=== PATIENT | female | born 1970 | race Asian ===

== ENCOUNTER → 2016-09-11 | Outpatient (CLI) | payer BC | END | disposition home or self-care (01) | LOC: LAB 09:41 | PROVIDERS: ATTEND Internal Medicine | DX: E78.00 Pure hypercholesterolemia, unspecified (principal) | CPT/HCPCS: 80061 ==

== ENCOUNTER → 2016-11-20 | Outpatient (CLI) | payer BC ==
[2016-11-20 15:06] LABS: THYROID STIMULATING HORMONE 1.4 MIU/L (0.465-4.680); TRIIODOTHYRONINE 0.97 ng/ml (0.97-1.69)
== END | disposition home or self-care (01) ==
LOC: LAB 13:35
PROVIDERS: ATTEND Internal Medicine
DX: N92.6 Irregular menstruation, unspecified (principal)
CPT/HCPCS: 83001; 84436; 84443; 84480; 84703

== ENCOUNTER → 2016-12-19 | Outpatient (CLI) | payer BC ==
[2016-12-19 12:35] LABS: ADD SCAN DIFF NO
[2016-12-19 12:56] LABS: INR 0.95; PROTIME 12.7 Sec (12.2-14.2)
[2016-12-19 13:22] LABS: BASOPHILS % 0.5 % (0.0-2.0); EOSINOPHILS # 0.1 10^3/ul (0.0-0.5); EOSINOPHILS % 2.1 % (0.0-7.0); HEMATOCRIT 33.6 % (37.0-47.0); HEMOGLOBIN 11.1 g/dl (12.0-16.0); LYMPHOCYTES # 1.7 10^3/ul (0.8-2.9); LYMPHOCYTES % 30.2 % (15.0-51.0); MEAN CORPUSCULAR HEMOGLOBIN 29.2 pg (29.0-33.0); MEAN CORPUSCULAR VOLUME 88.4 fl (82.0-101.0); MEAN PLATELET VOLUME 10.2 fl (7.4-10.4); MONOCYTE # 0.3 10^3/ul (0.3-0.9); MONOCYTES % 5.6 % (0.0-11.0); NEUTROPHIL # 3.5 10^3/ul (1.6-7.5); NEUTROPHILS % 61.4 % (39.0-77.0); PLATELET COUNT 316 10^3/UL (140-415); RED CELL DISTRIBUTION WIDTH 15.9 % (11.5-14.5); WHITE BLOOD COUNT 5.7 10^3/ul (4.8-10.8)
[2016-12-21 14:15] LABS: LUTEINIZING HORMONE 7.3 mIU/mL
== END | disposition home or self-care (01) ==
LOC: LAB 12:01
DX: N92.1 Excessive and frequent menstruation with irregular cycle (principal)
CPT/HCPCS: 82670; 83001; 83002; 84146; 84702; 85025; 85610; 85651; 85730

== ENCOUNTER 2016-12-26 01:08 | Emergency (ER) | payer BC ==
[~2016-12-26] VITALS: Ht 162.6 cm; Wt 65.0 kg
[2016-12-26 01:10] VITALS: Ht 162.6 cm; Wt 65.0 kg
--- NOTE | 2016-12-26 02:59 | RADRPT ---
PROCEDURE: ULTRASOUND PELVIS CLINICAL INDICATION: 46-year-old female with vaginal bleeding. TECHNIQUE: Multiple sonographic images of the pelvis were obtained utilizing a transabdominal and endovaginal technique. The images were reviewed on a PACS workstation. COMPARISON: None. FINDINGS: The uterus is visualized and measures 9.7 x 5.1 x 5.6 cm. The endometrial echo complex is within nor mal limits and measures 12.2 mm. There is no evidence for free fluid. The right ovary has a normal e chotexture and measures 3.6 x 2.0 x 3.1 cm. There is flow identified within the right ovary. There i s a dominant right ovarian cyst measuring 3.0 x 0.6 x 2.0 cm. There is a smaller adjacent follicular right ovarian cyst. The left ovary was not visualized. No adnexal masses are noted. IMPRESSION: 1. Right ovarian cyst. 2. The left ovary was not visualized. .Faizan Sanches MD, Date Time Electronically viewed and signed by .Faizan Sanches MD, on 12/26/2016 02:59 .Caroline/
[2016-12-26 03:17] LABS: ADD UMIC YES; UR BILIRUBIN (Dip) NEGATIVE (NEGATIVE); UR BLOOD (Dip) 3+ (NEGATIVE); UR CLARITY CLOUDY (CLEAR); UR COLOR LT. YELLOW (YELLOW); UR GLUCOSE (Dip) NEGATIVE (NEGATIVE); UR KETONES (Dip) NEGATIVE (NEGATIVE); UR LEUKOCYTE ESTERASE (Dip) NEGATIVE (NEGATIVE); UR NITRITE (Dip) NEGATIVE (NEGATIVE); UR TOTAL PROTEIN (Dip) TRACE (NEGATIVE); UR UROBILINOGEN (Dip) 0.2 E.U./dL (0.1-1.0)
[2016-12-26 03:19] LABS: ADD SCAN DIFF NO
[2016-12-26 03:21] LABS: BASOPHILS % 0.6 % (0.0-2.0); EOSINOPHILS # 0.1 10^3/ul (0.0-0.5); EOSINOPHILS % 1.7 % (0.0-7.0); HEMOGLOBIN 10.5 g/dl (12.0-16.0); LYMPHOCYTES # 2.1 10^3/ul (0.8-2.9); MEAN CORPUSCULAR HEMOGLOBIN 29.1 pg (29.0-33.0); MEAN CORPUSCULAR HGB CONC 32.8 g/dl (32.0-37.0); MEAN CORPUSCULAR VOLUME 88.6 fl (82.0-101.0); MEAN PLATELET VOLUME 9.4 fl (7.4-10.4); MONOCYTE # 0.4 10^3/ul (0.3-0.9); MONOCYTES % 6.1 % (0.0-11.0); NEUTROPHIL # 4.5 10^3/ul (1.6-7.5); NEUTROPHILS % 62.5 % (39.0-77.0); PLATELET COUNT 351 10^3/UL (140-415); RED BLOOD COUNT 3.61 10^6/ul (4.20-5.40); RED CELL DISTRIBUTION WIDTH 15.9 % (11.5-14.5); WHITE BLOOD COUNT 7.2 10^3/ul (4.8-10.8)
[2016-12-26] MEDS ORDERED: SOD CHLORIDE 0.9% 1,000 ML IV ONE (03:30)
[2016-12-26 03:48] LABS: POTASSIUM 3.9 mmol/L (3.5-5.1)
[2016-12-26] MEDS ORDERED: MEDR2.5T21 PO (03:49)
[2016-12-26] MEDS ORDERED: METO-448 PO (03:49)
--- NOTE | 2016-12-26 03:49 | ERD ---
ER Documentation Chief Complaint Date/Time DATE: 12/26/16 TIME: 03:47 Chief Complaint pt has had irregular vb since november, 1 pad per hour HPI 46-year-old female presents in emergency department for complaint of irregular vaginal bleeding for the last 4 months, worse in the last month. Patient has been soaking 7 pads per day for the last week. Patient is complaining of pelvic pain and cramping pain for/10 scale, accompanying the vaginal bleeding. Patient has seen OB doctor, was given prescription for medroxyprogesterone she has been taking the medications but with only mild relief. Patient denies any flank pain. Patient denies any fever or chills. Patient denies being . Patient denies any chest pain, dizziness. Patient denies any numbness or tingling. Patient has any shortness of breath. ROS All systems reviewed and are negative except as per history of present illness. Medications Home Meds Active Scripts Docusate Sodium* (Colace*) 100 Mg Capsule, 100 MG PO TID, #30 CAP Prov:KALE VALADEZ EMERGENCY MEDICINE 12/26/16 Ferrous Sulfate* (Ferrous Sulfate*) 325 Mg Tabec, 325 MG PO BID, #60 TAB Prov:KALE VALADEZ EMERGENCY MEDICINE 12/26/16 Ibuprofen* (Motrin*) 600 Mg Tab, 600 MG PO Q6H Y for PAIN AND OR ELEVATED TEMP, #30 TAB Prov:KALE VALADEZ EMERGENCY MEDICINE 12/26/16 Reported Medications Medroxyprogesterone Acetate* (Medroxyprogesterone Acetate*) Unknown Strength Tablet, PO DAILY, TAB 12/26/16 Metoprolol Tartrate* (Lopressor*) Unknown Strength Tab, PO BID, #180 TAB 12/26/16 Allergies Allergies: Coded Allergies: No Known Allergy (Verified Allergy, Unknown, 12/05/06) PMhx/Soc History of Surgery: Yes (choley.) Hx Cardiac Disorders: Yes (htn) Hx Miscellaneous Medical Probl: No Hx Alcohol Use: No Hx Substance Use: No Hx Tobacco Use: No Smoking Status: Never smoker FmHx Family History: No coronary disease, No diabetes, No other Physical Exam Vitals Vital Signs Date Time Temp Pulse Resp B/P Pulse Ox O2 Delivery O2 Flow Rate FiO2 12/26/16 05:15 98.0 76 18 167/88 100 Room Air 12/26/16 01:10 98.3 106 16 160/99 100 Physical Exam GENERAL: The patient is well developed and appropriate for usual state of health, in no apparent distress. CHEST: Clear to auscultation bilaterally. There are no rales, wheezes or rhonchi. HEART: Regular rate and rhythm. No murmurs, clicks, rubs or gallops. No S3 or S4. ABDOMEN: Soft, nontender and nondistended. Good bowel sounds. No rebound or guarding. No gross peritonitis. No gross organomegaly or masses. No Gan sign or McBurney point tenderness. BACK: No midline or flank tenderness. EXTREMITIES: Equal pulses bilaterally. There is no peripheral clubbing, cyanosis or edema. No focal swelling or erythema. Full range of motion. Grossly neurovascularly intact. NEURO: Alert and oriented. Cranial nerves 2-12 intact. Motor strength in all 4 extremities with 5/5 strength. Sensation grossly intact. Normal speech and gait. SKIN: There is no apparent rash or petechia. The skin is warm and dry. HEMATOLOGIC AND LYMPHATIC: There is no evidence of excessive bruising or lymphedema. No gross cervical, axillary, or inguinal lymphadenopathy. Result Diagram: 12/26/16 0308 12/26/16 0308 Results 24 hrs Laboratory Tests Test 12/26/16 03:00 12/26/16 03:08 Urine Color LT. YELLOW Urine Clarity CLOUDY Urine pH 6.0 Urine Specific [place] 1.025 Urine Ketones NEGATIVE Urine Nitrite NEGATIVE Urine Bilirubin NEGATIVE Urine Urobilinogen 0.2 E.U./dL Urine Leukocyte Esterase NEGATIVE Urine Microscopic RBC >50/HPF Urine Microscopic WBC 0-2/HPF Urine Squamous Epithelial Cells FEW Urine Bacteria FEW Urine Mucus MODERATE Urine Hemoglobin 3+ Urine Glucose NEGATIVE% Urine Total Protein TRACE White Blood Count 7.210^3/ul Red Blood Count 3.6110^6/ul Hemoglobin 10.5g/dl Hematocrit 32.0% Mean Corpuscular Volume 88.6fl Mean Corpuscular Hemoglobin 29.1pg Mean Corpuscular Hemoglobin Concent 32.8g/dl Red Cell Distribution Width 15.9% Platelet Count 79494^3/UL Mean Platelet Volume 9.4fl Neutrophils % 62.5% Lymphocytes % 29.0% Monocytes % 6.1% Eosinophils % 1.7% Basophils % 0.6% Nucleated Red Blood Cells % 0.0/100WBC Neutrophils # 4.510^3/ul Lymphocytes # 2.110^3/ul Monocytes # 0.410^3/ul Eosinophils # 0.110^3/ul Basophils # 0.010^3/ul Nucleated Red Blood Cells # 0.010^3/ul Sodium Level 142mmol/L Potassium Level 3.9mmol/L Chloride Level 108mmol/L Carbon Dioxide Level 26mmol/L Anion Gap 12 Blood Urea Nitrogen 11mg/dl Creatinine 1.00mg/dl Glucose Level 121mg/dl Calcium Level 9.0mg/dl Beta HCG, Quantitative < 2.4mIU/ml Current Medications Medications (Trade) Dose Ordered Sig/Dylan Route PRN Reason Start Time Stop Time Status Last Admin Dose Admin Sodium Chloride (NS) 1,000 ml @ 1,000 mls/hr Q1H ONCE IV 12/26/16 03:30 12/26/16 04:29 DC 12/26/16 03:33 Ketorolac Tromethamine (Toradol) 30 mg ONCE STAT IV 12/26/16 04:59 12/26/16 05:02 DC 12/26/16 05:05 Normal saline IV bolus was given here in emergency department for rehydration, patient tolerated IV fluids. Toradol IV was given here in emergency department to help with cramping. PROCEDURE: ULTRASOUND PELVIS CLINICAL INDICATION: 46-year-old female with vaginal bleeding. TECHNIQUE: Multiple sonographic images of the pelvis were obtained utilizing a transabdominal and endovaginal technique. The images were reviewed on a PACS workstation. COMPARISON: None. FINDINGS: The uterus is visualized and measures 9.7 x 5.1 x 5.6 cm. The endometrial echo complex is within normal limits and measures 12.2 mm. There is no evidence for free fluid. The right ovary has a normal echotexture and measures 3.6 x 2.0 x 3.1 cm. There is flow identified within the right ovary. There is a dominant right ovarian cyst measuring 3.0 x 0.6 x 2.0 cm. There is a smaller adjacent follicular right ovarian cyst. The left ovary was not visualized. No adnexal masses are noted. IMPRESSION: 1. Right ovarian cyst. 2. The left ovary was not visualized. .Faizan Sanches MD, MD Date Time Electronically viewed and signed by .Faizan Sanches MD, on 12/26/2016 02:59 .M/ CC: NKECHI BAKER Procedures/MDM Medical Decision Making: Patients vaginal bleeding is most likely consistent of dysfunctional uterine bleeding. Patient does not show any evidence of hypovolemic shock. Patients hemoglobin and hematocrit is stable. There is low suspicion for ectopic . CADEN results show right ovarian cyst BetaHCG Quantitative is low negative for There is no signs of symptoms of dehydration. There is low suspicion for sepsis. Patient appears well and is hemodynamically stable. Disposition: Home. Condition: Stable Prescription: First sulfate, Colace, continue medroxyprogesterone, Ibuprofen Instructions: Patient is advised to do bed rest, avoid heavy lifting, and avoid having sex until cleared by OB doctor. Patient is advised to follow up with OB doctor for further evaluation and management. Patient is advised that is symptoms are worst, severe bleeding, dizziness, severe abdominal pain, fever, worst signs and symptoms to return to the emergency department immediately. Departure Diagnosis: Primary Impression: Menometrorrhagia Condition: Stable Patient Instructions: Dysfunctional Uterine Bleeding Additional Instructions: Patient is advised to do bed rest, avoid heavy lifting, and avoid having sex until cleared by OB doctor. Patient is advised to follow up with OB doctor for further evaluation and management. Patient is advised that is symptoms are worst , severe bleeding, dizziness, severe abdominal pain, fever, worst signs and symptoms to return to the emergency department immediately. KALE VALADEZ NP Dec 26, 2016 03:49
[2016-12-26 04:10] LABS: UR MUCUS MODERATE; UR SQUAMOUS EPITHELIAL CELL FEW; URINE RBCS >50 /HPF (0)
[2016-12-26 04:11] LABS: UR BACTERIA FEW
[2016-12-26] MEDS ORDERED: KETOROLAC 30 MG INJ IV STA (04:59)
[2016-12-26] MEDS ORDERED: FER325 PO (05:05)
[2016-12-26] MEDS ORDERED: DOCU-144 PO (05:05)
[2016-12-26] MEDS ORDERED: IBUP-1542 PO (05:05)
[2016-12-26 05:15] VITALS: BP 167/88; PULSE 76; RESP 18; TEMP 98
== END 2016-12-26 05:16 | disposition home or self-care (01) ==
LOC: FTE 01:08
DX: N92.1 Excessive and frequent menstruation with irregular cycle (principal); I10 Essential (primary) hypertension; R10.2 Pelvic and perineal pain
CPT/HCPCS: 36415; 76830; 76856; 80048; 81001; 84702; 85025; 86850; 86900; 86901; 87086; 96374; 99285; J1885; J7030

== ENCOUNTER 2016-12-30 19:23 | Inpatient (IN) | payer BC ==
[~2016-12-30] VITALS: Ht 162.6 cm; Wt 64.5 kg
[~2016-12-30 19:23] MED LIST: DOCU-144 PO; FER325 PO; IBUP-1542 PO; MEDR2.5T21 PO; METO-448 PO
[2016-12-30 20:35] VITALS: TEMP 99.1
[2016-12-30 20:55] LABS: ADD SCAN DIFF NO; BASOPHILS % 0.3 % (0.0-2.0); EOSINOPHILS % 0.5 % (0.0-7.0); HEMATOCRIT 26.8 % (37.0-47.0); HEMOGLOBIN 8.8 g/dl (12.0-16.0); LYMPHOCYTES # 1.4 10^3/ul (0.8-2.9); LYMPHOCYTES % 16.3 % (15.0-51.0); MEAN CORPUSCULAR HEMOGLOBIN 29.5 pg (29.0-33.0); MEAN CORPUSCULAR HGB CONC 32.8 g/dl (32.0-37.0); MEAN CORPUSCULAR VOLUME 89.9 fl (82.0-101.0); MEAN PLATELET VOLUME 9.3 fl (7.4-10.4); MONOCYTE # 0.4 10^3/ul (0.3-0.9); MONOCYTES % 4.9 % (0.0-11.0); NEUTROPHIL # 6.8 10^3/ul (1.6-7.5); NEUTROPHILS % 77.7 % (39.0-77.0); PLATELET COUNT 353 10^3/UL (140-415); RED BLOOD COUNT 2.98 10^6/ul (4.20-5.40); RED CELL DISTRIBUTION WIDTH 16.5 % (11.5-14.5); WHITE BLOOD COUNT 8.8 10^3/ul (4.8-10.8)
[2016-12-30] MEDS ORDERED: ESTR1.2510 PO (21:00)
[2016-12-30] MEDS ORDERED: METO-429 PO (21:02)
[2016-12-30 21:41] LABS: CALCIUM 8.8 mg/dl (8.4-10.2); CREATININE 0.91 mg/dl (0.44-1.00); POTASSIUM 4.1 mmol/L (3.5-5.1)
--- NOTE | 2016-12-30 23:03 | RADRPT ---
PROCEDURE: US Non-OB Pelvis. CLINICAL INDICATION: Vaginal bleeding. TECHNIQUE: Multiple sonographic images of the pelvis were obtained utilizing a transabdominal and endovaginal technique. The images were reviewed on a PACS workstation. COMPARISON: None. FINDINGS: The uterus is visualized and measures . The endometrial echo complex is normal and measures 13 mm. The right ovary measures 3.6 x 2.1 x 2.7 cm. There is a 2.8 cm simple right ovarian cyst, normal for age. The left ovary measures 2.2 x 0.8 x 1.9 cm. Blood flow is demonstrated to both ovaries. No adnexal masses are noted. There is a small volume of free fluid adjacent to the right ovary, prob ably physiologic. IMPRESSION: 1. Unremarkable pelvic ultrasound. RPTAT: HTAR .Gunner Zayas MD, Date Time Electronically viewed and signed by .Gunner Zayas MD, on 12/30/2016 22:38 .R/
--- NOTE | 2016-12-30 23:07 | ERD ---
ER Documentation Chief Complaint Date/Time DATE: 12/30/16 TIME: 22:43 Chief Complaint VAG BLEED X 1 MONTH. PAD CHANGE Q2H HPI This is a 46-year-old female presents to the emergency room for vaginal bleeding for 1 months duration. The patient states that she has been going through pad every 2 hours. She states that she saw her primary care physician and was originally started on Provera 10 mg daily. She states that she took a course of Provera and the bleeding did mildly subside however did not stop completely. She then was switched over to Premarin 1.25 mg daily. The patient presents today for vaginal bleeding which she describes as dark blood with clots. She again states her appointments in January. ROS All systems reviewed and are negative except as per history of present illness. Medications Home Meds Active Scripts Ferrous Sulfate* (Ferrous Sulfate*) 325 Mg Tabec, 325 MG PO BID, #60 TAB Prov:KALE VALADEZ COST ESTIMATING MANAGER 12/26/16 Ibuprofen* (Motrin*) 600 Mg Tab, 600 MG PO Q6H Y for PAIN AND OR ELEVATED TEMP, #30 TAB Prov:KALE VALADEZ COST ESTIMATING MANAGER 12/26/16 Reported Medications Metoprolol Tartrate* (Lopressor*) 50 Mg Tab, 50 MG PO BID, #60 TAB 12/30/16 Estrogens Conjugated* (Premarin*) 1.25 Mg Tablet, 1.25 MG PO DAILY, TAB 12/30/16 Discontinued Reported Medications Medroxyprogesterone Acetate* (Medroxyprogesterone Acetate*) Unknown Strength Tablet, PO DAILY, TAB 12/26/16 Metoprolol Tartrate* (Lopressor*) Unknown Strength Tab, PO BID, #180 TAB 12/26/16 Discontinued Scripts Docusate Sodium* (Colace*) 100 Mg Capsule, 100 MG PO TID, #30 CAP Prov:KALE VALADEZ COST ESTIMATING MANAGER 12/26/16 Allergies Allergies: Coded Allergies: No Known Allergy (Verified , 12/30/16) PMhx/Soc History of Surgery: Yes (cholecystectomy) Anesthesia Reaction: No Hx Neurological Disorder: No Hx Respiratory Disorders: No Hx Cardiac Disorders: Yes (htn, hyperlipidemia) Hx Psychiatric Problems: No Hx Miscellaneous Medical Probl: No Hx Alcohol Use: No Hx Substance Use: No Hx Tobacco Use: No Smoking Status: Never smoker Physical Exam Vitals Vital Signs Date Time Temp Pulse Resp B/P Pulse Ox O2 Delivery O2 Flow Rate FiO2 12/30/16 20:35 99.1 93 20 155/112 100 Room Air 12/30/16 19:34 99.1 114 20 185/123 96 Physical Exam Const: No acute distress Head: Atraumatic Eyes: Normal Conjunctiva ENT: Normal External Ears, Nose and Mouth. Neck: Full range of motion..~ No meningismus. Resp: Clear to auscultation bilaterally Cardio: Tachycardic no murmurs Abd: Soft, non tender, non distended. Normal bowel sounds Skin: No petechiae or rashes Back: No midline or flank tenderness Ext: No cyanosis, or edema Neur: Awake and alert Psych: Normal Mood and Affect Result Diagram: 12/30/16203912/30/162039 Results 24 hrs Laboratory Tests Test 12/30/16 20:40 White Blood Count 8.810^3/ul Red Blood Count 2.9810^6/ul Hemoglobin 8.8g/dl Hematocrit 26.8% Mean Corpuscular Volume 89.9fl Mean Corpuscular Hemoglobin 29.5pg Mean Corpuscular Hemoglobin Concent 32.8g/dl Red Cell Distribution Width 16.5% Platelet Count 69350^3/UL Mean Platelet Volume 9.3fl Neutrophils % 77.7% Lymphocytes % 16.3% Monocytes % 4.9% Eosinophils % 0.5% Basophils % 0.3% Nucleated Red Blood Cells % 0.0/100WBC Neutrophils # 6.810^3/ul Lymphocytes # 1.410^3/ul Monocytes # 0.410^3/ul Eosinophils # 0.010^3/ul Basophils # 0.010^3/ul Nucleated Red Blood Cells # 0.010^3/ul Sodium Level 136mmol/L Potassium Level 4.1mmol/L Chloride Level 101mmol/L Carbon Dioxide Level 26mmol/L Anion Gap 13 Blood Urea Nitrogen 11mg/dl Creatinine 0.91mg/dl Glucose Level 128mg/dl Calcium Level 8.8mg/dl Procedures/MDM This 46-year-old female presents to the ER for vaginal bleeding. The patient does have a hemoglobin of 8.8 which is down from 10.5 4 days ago. She was tachycardic I did give her 1 L fluids. The patient is on Premarin at this time for dysfunctional uterine bleeding. I have called her CIVIL GEOTECHNICAL ENGINEER physician on-call , Dr. Carreno. She states that the patient can be switched to oral contraceptive pills Microgestin 1.12/12 Departure Diagnosis: Primary Impression: Normocytic anemia Additional Impression: Dysfunctional uterine bleeding Condition: Stable ESVIN MONTERO DO Dec 30, 2016 22:45
[2016-12-30] MEDS ORDERED: SOD CHLORIDE 0.9% 1,000 ML IV STA (23:16)
[2016-12-30] MEDS ORDERED: SOD CHLORIDE 0.9% 250 ML IV ONE (23:16)
[2016-12-31] MEDS ORDERED: SOD CHLORIDE 0.9% 1,000 ML IV SCH (00:20)
[2016-12-31] MEDS ORDERED: ACETAMINOPHEN 325 MG TAB PO PRN (00:30)
[2016-12-31] MEDS ORDERED: ONDANSETRON 4 MG INJ IV PRN (00:30)
--- NOTE | 2016-12-31 00:42 | QN ---
Documentation Comment ER Consult: 46 yo P3, has had irreg menses since August. She had her period twice in August, skipped September, then had a scant period in October. In November, had a prolonged period, at which point her primary doctor prescribed her Provera for 4 or 5 days. This did not resolved this issue. He then prescribed Premarin 1.5mg, which she has taken for a few days. She started having heavy bleeding and her Hgb today is 8.8 (previously greater than 10). She had a syncopal episode in the ER and is tachycardic to the 110's. POB- x 3 PGYN- irreg menses as above PMH- HTN, Hypercholesterolemia Meds-Lopressor- 50 mg po BID NKDA PE: VS: 111/75, 99.1, 90, 16; BP's as high as 188/123 Abdomen- soft, n/t Perineum- no blood on pad; not actively bleeding A/P: 46 yo w dysfunctional uterine bleeding -Likley perimenopausal, but needs EAB as outpatient to r/o hyperplasia/carcinoma - Would recommend TSH to r/o endocrine abnormalities - patient should have sono or sonohystogram as outpatient to r/o structural abnormalities such as polyps/fibroids - patient is not acutely bleeding, but D&C may be indicated if her bleeding becomes heavy again - since patient has uncontrolled HTN, recommended to stop Premarin and start Provera for a full course of 10mg po qd x 10 days - informed by ED physician that patient is being admitted under her primary doctor for transfusion secondary to symptomatic anemia - reconsult PERSONNEL INTERVIEWER prLOR Don MD Dec 31, 2016 00:42
[2016-12-31 01:15] VITALS: BP 121/94; PULSE 88; RESP 18
[2016-12-31] MEDS ORDERED: hydrALAzine 20 MG INJ IV PRN (02:00)
[2016-12-31] MEDS ORDERED: IBUPROFEN 600 MG TAB PO PRN (02:00)
[2016-12-31 02:41] VITALS: Ht 162.6 cm; Wt 64.5 kg
[2016-12-31 08:38] VITALS: BP 101/65; RESP 21
[2016-12-31 08:48] LABS: ADD SCAN DIFF NO
[2016-12-31 08:51] LABS: BASOPHILS % 0.3 % (0.0-2.0); EOSINOPHILS # 0.1 10^3/ul (0.0-0.5); EOSINOPHILS % 0.9 % (0.0-7.0); HEMATOCRIT 24.1 % (37.0-47.0); LYMPHOCYTES # 1.9 10^3/ul (0.8-2.9); LYMPHOCYTES % 28.6 % (15.0-51.0); MEAN CORPUSCULAR HEMOGLOBIN 29.4 pg (29.0-33.0); MEAN CORPUSCULAR HGB CONC 33.2 g/dl (32.0-37.0); MEAN CORPUSCULAR VOLUME 88.6 fl (82.0-101.0); MEAN PLATELET VOLUME 9.4 fl (7.4-10.4); MONOCYTE # 0.5 10^3/ul (0.3-0.9); MONOCYTES % 7.8 % (0.0-11.0); NEUTROPHIL # 4.1 10^3/ul (1.6-7.5); NEUTROPHILS % 61.7 % (39.0-77.0); PLATELET COUNT 270 10^3/UL (140-415); RED BLOOD COUNT 2.72 10^6/ul (4.20-5.40); RED CELL DISTRIBUTION WIDTH 16.8 % (11.5-14.5); WHITE BLOOD COUNT 6.7 10^3/ul (4.8-10.8)
[2016-12-31] MEDS: MEDROXYPROGESTERONE 10 MG TAB PO SCH (09:15)
[2016-12-31] MEDS: METOPROLOL 50 MG TAB PO SCH ×2 (09:16→20:54)
[2016-12-31] MEDS: FERROUS SULFATE (EC) 325 MG TAB PO SCH ×2 (09:16→20:53)
[2016-12-31 09:21] LABS: ALBUMIN 3.8 g/dl (3.3-4.9); ALBUMIN/GLOBULIN RATIO 1.8; BILIRUBIN,INDIRECT 1.5 mg/dl (0-1.1); BILIRUBIN,TOTAL 1.5 mg/dl (0.2-1.3); CALCIUM 7.9 mg/dl (8.4-10.2); CREATININE 0.8 mg/dl (0.44-1.00); POTASSIUM 3.8 mmol/L (3.5-5.1); TOTAL PROTEIN 5.9 g/dl (6.1-8.1)
[2016-12-31] MEDS ORDERED: ACETAMINOPHEN 325 MG TAB PO ONE (15:30)
[2016-12-31] MEDS ORDERED: DIPHENHYDRAMINE 50 MG INJ IV ONE (15:30)
[2016-12-31 19:34] VITALS: BP 126/82; RESP 20
--- NOTE | 2016-12-31 23:53 | HP ---
DATE OF ADMISSION: 12/31/2016 ADMITTING DIAGNOSIS: Severe anemia and dysfunctional uterine bleeding. HISTORY OF PRESENT ILLNESS: The patient is a 46-year-old female who presented to the emergenc y room for significant vaginal bleeding. The patient reports that she has been bleeding on and off over the last month. The patient had responded initially to Provera and bleeding had somewhat stopp ed. The patient was then changed over to Premarin and bleeding started thereafter with heavy clots, dark blood and cramping. The patient became weak, having lightheadedness and presented to the [facility] room for further evaluation. In emergency room, the patient was found to be significantly ane jadyn and was admitted for further evaluation and care. The patient was started on transfusions in th e emergency room and has thus far received 2 units of blood. REVIEW OF SYSTEMS: Unremarkable. No fevers, chills or night sweats. No nausea, vomiting, diarrhea , constipation. No abdominal pain, occasional cramps. No headache, no blurred vision. PAST MEDICAL HISTORY: Hypertension, iron deficiency anemia. PAST SURGICAL HISTORY: Cholecystectomy. FAMILY HISTORY: Noncontributory. ALLERGIES: NONE. MEDICATIONS 1. Metoprolol tartrate 50 mg b.i.d. 2. Ferrous sulfate 325 mg b.i.d. 3. P.r.n. Ibuprofen. 4. Premarin 1.25 mg daily. SOCIAL HISTORY: No tobacco, no alcohol use. Patient is a nurse, . PHYSICAL EXAMINATION: VITAL SIGNS: In the emergency room, temperature was 99.1, pulse of 114, respirations 20, blood pres sure 185/123, oximetry 96%. Vital signs now with a temperature of 98.3, pulse of 87, respirations 20 , blood pressure 126/82, oxygen saturation 95% on room air. GENERAL: Well-developed, well-nourished female in no acute distress, lying in bed. SKIN: Mild pallor. No rashes. HEENT: Pale mucosa. Extraocular muscles intact. Pupils equal, round, reactive. Oropharynx clear. NECK: No jugular venous distention, 2+ carotid upstroke without bruits. No thyromegaly. LUNGS: Clear to auscultation bilaterally. HEART: Regular rate and rhythm. Normal S1, S2. No murmurs, gallops or rubs noted. ABDOMEN: Soft, nontender, nondistended, normoactive bowel sounds. PELVIC: Deferred to NUCLEAR RADIATION ENGINEER. EXTREMITIES: No cyanosis, clubbing or edema. NEUROLOGIC: Nonfocal. LABORATORY EXAMINATION: White blood cell count 8.8, hemoglobin of 8.8, hematocrit of 26.8, platelet s 253. Repeat hematocrit was 24.1, hemoglobin of 8.0. White blood cell count of 6.7, platelets 270 . Chem panel with sodium 137, potassium 3.8, chloride 106, bicarbonate 26, BUN of 7, creatinine 0.8, c alcium 7.9, total bilirubin 1.5, AST 31, ALT of 27, alkaline phosphatase 103, albumin 3.8. Pelvic u ltrasound unremarkable. IMPRESSION: The patient is a 46-year-old female with dysfunctional uterine bleeding with significan t anemia, admitted for further evaluation and care. The patient is to be admitted for transfusion a nd to be evaluated by NUCLEAR RADIATION ENGINEER. 1. Dysfunctional uterine bleeding. We will give supportive care with IV fluids and blood. We will repeat in the morning and transfuse as needed as patient continues to have significant clotting as she is passing it vaginally. 2. Hypertension. We will continue the patient's medications and diet. 3. Anemia due to bleeding. Will transfuse as needed. Continue iron. Dictated By: NATHEN DOW MD, SR/SEBASTIAN Conf#: [id number] DID#: [id number]
[2017-01-01] VITALS (26 sets, daily range): BP systolic 110–158; BP diastolic 71–102; PULSE 72–88; RESP 9–20
[2017-01-01 07:55] LABS: ADD SCAN DIFF NO
[2017-01-01 07:58] LABS: BASOPHILS % 0.3 % (0.0-2.0); EOSINOPHILS # 0.1 10^3/ul (0.0-0.5); EOSINOPHILS % 1.5 % (0.0-7.0); HEMATOCRIT 29.9 % (37.0-47.0); HEMOGLOBIN 9.8 g/dl (12.0-16.0); LYMPHOCYTES # 2.3 10^3/ul (0.8-2.9); LYMPHOCYTES % 26.2 % (15.0-51.0); MEAN CORPUSCULAR HEMOGLOBIN 28.8 pg (29.0-33.0); MEAN CORPUSCULAR HGB CONC 32.8 g/dl (32.0-37.0); MEAN CORPUSCULAR VOLUME 87.9 fl (82.0-101.0); MEAN PLATELET VOLUME 9.4 fl (7.4-10.4); MONOCYTE # 0.6 10^3/ul (0.3-0.9); MONOCYTES % 6.8 % (0.0-11.0); NEUTROPHIL # 5.6 10^3/ul (1.6-7.5); NEUTROPHILS % 64.2 % (39.0-77.0); NUCLEATED RED BLOOD CELLS% 0.3 /100WBC (0.0-0.0); PLATELET COUNT 237 10^3/UL (140-415); WHITE BLOOD COUNT 8.7 10^3/ul (4.8-10.8)
[2017-01-01 08:23] LABS: CALCIUM 8.2 mg/dl (8.4-10.2); CREATININE 0.86 mg/dl (0.44-1.00); POTASSIUM 4.1 mmol/L (3.5-5.1)
[2017-01-01] MEDS: METOPROLOL 50 MG TAB PO SCH ×2 (08:38→21:30)
[2017-01-01] MEDS: MEDROXYPROGESTERONE 10 MG TAB PO SCH (08:38)
[2017-01-01] MEDS: FERROUS SULFATE (EC) 325 MG TAB PO SCH ×2 (08:39→21:29)
--- NOTE | 2017-01-01 10:17 | CONS ---
Date/Time of Note Date/Time of Note DATE: 01/01/17 TIME: 10:09 Consultation Date/Type/Reason Admit Date/Time January 01, 2017 Hospital consult Initial Consult Date This patient is a 46 years old 3 para 3 who was admitted in the hospital yesterday due to heavy vaginal bleeding . In reviewing her past history her last normal menstrual period was on August ever since she is bleeding irregularly .on September she did not have any bleeding and on October and november she had the bleeding quite heavily. she was seen in emergency room twice and this is a third time admission . two days ago she was admired again and received a 2 units of packed cells which brought her hemoglobin to 9.7 . Due to l continuation of spotting and bleeding we are planning to do a dilatation and curettage as a diagnostic and possibly therapeutic measures In reviewing her past history she had all 3 deliveries vaginally with no complications. She denies any other surgeries or other major medical problem She was placed on several different modality of hormonal therapy including progesterone long-acting progesterone estrogen injection without any effect On examination today she is a well-developed well-nourished [place] lady in no acute distress she is slightly pale Ear nose throat appear to be normal Neck is normal no neck vein distention no thyromegaly, no lymph node enlargement anywhere in the body Chest is clear to auscultation and precaution, no rales. heart normal sinus rhythm no murmur Breasts are soft free of masses Abdomen is soft no organomegaly no tenderness no CVA tenderness extremities no edema no varicosities knee-jerk reflex are normal On pelvic examination vulva vagina and cervix were normal uterus is about normal size no adnexal mass could be palpated Reason for Consultation Laboratory Tests Test 01/01/17 06:01 01/01/17 07:40 Lab Scanned Report BLOOD [id number] White Blood Count 8.710^3/ul Red Blood Count 3.4010^6/ul Hemoglobin 9.8g/dl Hematocrit 29.9% Mean Corpuscular Volume 87.9fl Mean Corpuscular Hemoglobin 28.8pg Mean Corpuscular Hemoglobin Concent 32.8g/dl Red Cell Distribution Width 18.0% Platelet Count 69551^3/UL Mean Platelet Volume 9.4fl Neutrophils % 64.2% Lymphocytes % 26.2% Monocytes % 6.8% Eosinophils % 1.5% Basophils % 0.3% Nucleated Red Blood Cells % 0.3/100WBC Neutrophils # 5.610^3/ul Lymphocytes # 2.310^3/ul Monocytes # 0.610^3/ul Eosinophils # 0.110^3/ul Basophils # 0.010^3/ul Nucleated Red Blood Cells # 0.010^3/ul Sodium Level 136mmol/L Potassium Level 4.1mmol/L Chloride Level 105mmol/L Carbon Dioxide Level 26mmol/L Anion Gap 9 Blood Urea Nitrogen 11mg/dl Creatinine 0.86mg/dl Glucose Level 96mg/dl Calcium Level 8.2mg/dl Current Medications Medications (Trade) Dose Ordered Sig/Dylan Route PRN Reason Start Time Stop Time Status Last Admin Dose Admin IV Flush 10 ml 10 ml Q12H IV 12/30/16 23:00 12/31/16 02:20 DC Sodium Chloride 250 ml @ 0 mls/hr Q0M ONCE IV 12/30/16 23:16 12/30/16 23:18 DC Sodium Chloride 1,000 ml @ 1,000 mls/hr Q1H STAT IV 12/30/16 23:16 12/31/16 00:15 DC 12/30/16 23:30 1,000 MLS/HR Sodium Chloride (NS) 1,000 ml @ 80 mls/hr [id number] IV 12/31/16 00:20 12/31/16 02:20 DC Ondansetron HCl (Zofran Inj) 4 mg BRIDGE ORDER PRN IV NAUSEA AND/OR VOMITING 12/31/16 00:30 12/31/16 02:20 DC Acetaminophen (Tylenol Tab) 650 mg ER BRIDGE PRN PO MILD PAIN/FEVER 12/31/16 00:30 12/31/16 02:21 DC Metoprolol Tartrate (Lopressor) 50 mg BID PO 12/31/16 09:00 01/01/17 08:38 50 MG Ibuprofen (Motrin) 600 mg Q6H PRN PO PAIN 12/31/16 02:00 Ferrous Sulfate (Ferrous Sulfate (Ec)) 325 mg BID PO 12/31/16 09:00 01/01/17 08:39 325 MG Medroxyprogesterone Acetate (Provera) 10 mg DAILY PO 12/31/16 09:00 01/01/17 08:38 10 MG Hydralazine HCl (Apresoline) 10 mg Q6H PRN IV ELEVATED BLOOD PRESSURE 12/31/16 02:00 Diphenhydramine HCl (Benadryl) 25 mg ONCE ONCE IV 12/31/16 15:30 12/31/16 15:31 DC Acetaminophen (Tylenol Tab) 650 mg ONCE ONCE PO 12/31/16 15:30 12/31/16 15:31 DC 24 HR Interval Summary Free Text/Dictation Plan : due to continuation of vaginal bleeding and resulting anemia we will continue giving her 2 more units of blood and we will go ahead and do the D&C as a diagnostic and hopefully therapeutic procedure 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 Subjective hx not possible: pt non-verbal Exam/Review of Systems Vital Signs Vitals Vital Signs Date Time Temp Pulse Resp B/P Pulse Ox O2 Delivery O2 Flow Rate FiO2 12/31/16 19:34 98.3 87 20 126/82 95 12/31/16 01:15 Room Air Intake and Output 12/31/16 12/31/16 01/01/17 15:00 23:00 07:00 Intake Total 950 ml 1190 ml Output Total 1400 ml 1200 ml Balance -450 ml -10 ml Results Result Diagram: 01/01/17 0740 01/01/17 0740 Results 24 hrs Laboratory Tests Test 01/01/17 06:01 01/01/17 07:40 Lab Scanned Report BLOOD TRANSFUSION White Blood Count 8.7 # Red Blood Count 3.40 #L Hemoglobin 9.8 #L Hematocrit 29.9 #L Mean Corpuscular Volume 87.9 Mean Corpuscular Hemoglobin 28.8 L Mean Corpuscular Hemoglobin Concent 32.8 Red Cell Distribution Width 18.0 H Platelet Count 237 Mean Platelet Volume 9.4 Neutrophils % 64.2 Lymphocytes % 26.2 Monocytes % 6.8 Eosinophils % 1.5 Basophils % 0.3 Nucleated Red Blood Cells % 0.3 H Neutrophils # 5.6 Lymphocytes # 2.3 Monocytes # 0.6 Eosinophils # 0.1 Basophils # 0.0 Nucleated Red Blood Cells # 0.0 Sodium Level 136 Potassium Level 4.1 Chloride Level 105 Carbon Dioxide Level 26 Anion Gap 9 Blood Urea Nitrogen 11 Creatinine 0.86 Glucose Level 96 Calcium Level 8.2 L Medications Medications Current Medications Metoprolol Tartrate (Lopressor) 50 mg BID PO Last administered on 01/01/17 08: 38; Admin Dose 50 MG; Start 12/31/16 at 09:00 Ibuprofen (Motrin) 600 mg Q6H PRN PO PAIN; Start 12/31/16 at 02:00 Ferrous Sulfate (Ferrous Sulfate (Ec)) 325 mg BID PO Last administered on 08:39; Admin Dose 325 MG; Start 12/31/16 at 09:00 Medroxyprogesterone Acetate (Provera) 10 mg DAILY PO Last administered on 08:38; Admin Dose 10 MG; Start 12/31/16 at 09:00 Hydralazine HCl (Apresoline) 10 mg Q6H PRN IV ELEVATED BLOOD PRESSURE; Start at 02:00 DAWSON MARCUS MD Jan 01, 2017 10:17
[2017-01-01] MEDS: DEXTROSE 5%-0.45% NACL 1,000 ML IV SCH ×2 (11:07→17:25)
--- NOTE | 2017-01-01 19:01 | PN ---
Date/Time of Note Date/Time of Note DATE: 01/01/17 TIME: 18:45 Assessment/Plan VTE Prophylaxis VTE Prophylaxis Intervention: ambulation, contraindicated Lines/Catheters IV [facility]ter Type (from [facility] Saline Lock Urinary Cath still in place: No Assessment/Plan Assessment/Plan 1. Progressive menorrhagia with severe and symptomatic anemia requiring multiple units of packed red blood cell transfusion. Awaiting DNC and biopsy of endometrium. Further treatment plan per industrial relations specialist. Anticipate discharge to home tomorrow with possible 1-2 weeks of bedrest prior to returning to fulltime work. Subjective 24 Hr Interval Summary Free Text/Dictation S/P 5 UNITS OF PRBC TRANSFUSION AND IS STILL HAVING HEAVY BLEEDING. She is awaiting D&C by [employer] later on today Subjective hx not possible: other Constitutional: no complaints Exam/Review of Systems Vital Signs Vitals Vital Signs Date Time Temp Pulse Resp B/P Pulse Ox O2 Delivery O2 Flow Rate FiO2 01/01/17 18:20 98.5 75 16 135/87 12/31/16 19:34 95 12/31/16 01:15 Room Air Intake and Output 12/31/16 12/31/16 01/01/17 15:00 23:00 07:00 Intake Total 950 ml 1190 ml Output Total 1400 ml 1200 ml Balance -450 ml -10 ml Exam Constitutional: alert, oriented, well developed Head: atraumatic, normocephalic Eyes: EOMI, nl conjunctiva Respiratory: clear to auscultation, normal air movement Cardiovascular: nl pulses Gastrointestinal: non-tender, soft Musculoskeletal: nl extremities to inspection Results Result Diagram: 01/01/17 0740 01/01/17 0740 Results 24 hrs Laboratory Tests Test 01/01/17 06:01 01/01/17 07:40 Lab Scanned Report BLOOD TRANSFUSION White Blood Count 8.7 # Red Blood Count 3.40 #L Hemoglobin 9.8 #L Hematocrit 29.9 #L Mean Corpuscular Volume 87.9 Mean Corpuscular Hemoglobin 28.8 L Mean Corpuscular Hemoglobin Concent 32.8 Red Cell Distribution Width 18.0 H Platelet Count 237 Mean Platelet Volume 9.4 Neutrophils % 64.2 Lymphocytes % 26.2 Monocytes % 6.8 Eosinophils % 1.5 Basophils % 0.3 Nucleated Red Blood Cells % 0.3 H Neutrophils # 5.6 Lymphocytes # 2.3 Monocytes # 0.6 Eosinophils # 0.1 Basophils # 0.0 Nucleated Red Blood Cells # 0.0 Sodium Level 136 Potassium Level 4.1 Chloride Level 105 Carbon Dioxide Level 26 Anion Gap 9 Blood Urea Nitrogen 11 Creatinine 0.86 Glucose Level 96 Calcium Level 8.2 L Medications Medications Current Medications Metoprolol Tartrate (Lopressor) 50 mg BID PO Last administered on 01/01/17 08: 38; Admin Dose 50 MG; Start 12/31/16 at 09:00 Ibuprofen (Motrin) 600 mg Q6H PRN PO PAIN; Start 12/31/16 at 02:00 Ferrous Sulfate (Ferrous Sulfate (Ec)) 325 mg BID PO Last administered on 08:39; Admin Dose 325 MG; Start 12/31/16 at 09:00 Medroxyprogesterone Acetate (Provera) 10 mg DAILY PO Last administered on 08:38; Admin Dose 10 MG; Start 12/31/16 at 09:00 Hydralazine HCl 10 mg 10 mg Q6H PRN IV ELEVATED BLOOD PRESSURE; Start 12/31/16 at 02:00 Dextrose/Sodium Chloride (D5-1/2ns) 1,000 ml @ 125 mls/hr Q8H IV Last administered on 01/01/17 11:07; Admin Dose 125 MLS/HR; Start 01/01/17 at 10:30 STANISLAW YOUNG MD Jan 01, 2017 18:55
[2017-01-01] MEDS ORDERED: LIDOCAINE 2% (SDV) 5 ML INJ ONE (19:43)
[2017-01-01] MEDS ORDERED: SUCCINYLCHOLINE CHLORIDE 100 MG/5 ML SYG IV ONE (19:43)
[2017-01-01] MEDS ORDERED: PROPOFOL 20 ML ONE (19:43)
[2017-01-01] MEDS ORDERED: FENTAnyl 50 MCG/ML VIAL ONE (19:43)
[2017-01-01] MEDS ORDERED: MEPERIDINE 25 MG INJ IV PRN (20:30)
[2017-01-01] MEDS ORDERED: DIPHENHYDRAMINE 50 MG INJ IV PRN (20:30)
[2017-01-01] MEDS ORDERED: HYDROmorphONE (0.2 MG/ML) 10ML SYG IV PRN ×3 (20:30)
[2017-01-01] MEDS ORDERED: ONDANSETRON 4 MG INJ IV PRN (20:30)
[2017-01-01] MEDS ORDERED: FENTAnyl 50 MCG/ML VIAL IV PRN (20:30)
[2017-01-01] MEDS ORDERED: hydrALAzine 20 MG INJ IV PRN (20:30)
[2017-01-01] MEDS ORDERED: METOCLOPRAMIDE 10 MG INJ IV PRN (20:30)
[2017-01-01] MEDS ORDERED: LABETALOL HCL 20MG INJ IV PRN (20:30)
--- NOTE | 2017-01-01 22:56 | OPR ---
DATE OF OPERATION: PREOPERATIVE DIAGNOSIS: Menometrorrhagia. POSTOPERATIVE DIAGNOSIS: Menometrorrhagia. OPERATION PERFORMED: Dilatation and curettage. ANESTHESIA: General. DESCRIPTION OF PROCEDURE: Under satisfactory general anesthesia, the patient was placed in supine p osition. Vaginal area was prepped and the patient was draped. A bimanual pelvic examination was pe rformed. The uterus was top normal size, though no definite fibroids could be felt. Then, a weight ed speculum was placed inside the vagina and the cervix was picked up by a tenaculum. Uterus sounde d about 10 cm and cervix was already dilated. Using a #7 cannula, the contents of the uterus, which was mostly endometrial tissues, were evacuated and a sharp curet was used to ensure complete evacua tion of the endometrial cavity. The estimated blood loss was less than 20 mL. At the end of the pr ocedure, the specimens were sent for pathological examination and patient was transferred to the rec overy room in stable condition. Dictated By: DAWSON MARCUS MD HF/NTS Conf#: [id number] DID#: [id number] CC: NATHEN DOW MD;*EndCC*
[2017-01-02 00:20] VITALS: BP 126/80; PULSE 76; RESP 18
[2017-01-02] MEDS: DEXTROSE 5%-0.45% NACL 1,000 ML IV SCH ×3 (02:30→16:55)
[2017-01-02 08:20] VITALS: BP 122/80; PULSE 79; RESP 16
[2017-01-02] MEDS: METOPROLOL 50 MG TAB PO SCH (08:22)
[2017-01-02] MEDS: MEDROXYPROGESTERONE 10 MG TAB PO SCH (08:22)
[2017-01-02] MEDS: FERROUS SULFATE (EC) 325 MG TAB PO SCH (08:22)
--- NOTE | 2017-01-02 12:42 | CONS ---
Date/Time of Note Date/Time of Note DATE: 01/02/17 TIME: 12:40 Consultation Date/Type/Reason Admit Date/Time Dec 31, 2016 at 00:21 Initial Consult Date 01/02/17 Type of Consultation: Anesthesiology Reason for Consultation Follow up 24 HR Interval Summary Free Text/Dictation Pt seen and examined at bedside is POD#1 for D&C. Pt received GETA for the procedure and did well. She states her pain is adequately controlled at this time. No N/V/D. Will follow. Constitutional: improved, no complaints Exam/Review of Systems Vital Signs Vitals Vital Signs Date Time Temp Pulse Resp B/P Pulse Ox O2 Delivery O2 Flow Rate FiO2 01/02/17 08:20 98.0 79 16 122/80 98 Room Air Intake and Output 01/01/17 01/01/17 01/02/17 15:00 23:00 07:00 Intake Total 615 ml 775 ml Output Total 1400 ml 1000 ml Balance -785 ml -225 ml Results Result Diagram: 01/01/17 0740 01/01/17 0740 Results 24 hrs Laboratory Tests Test 01/02/17 06:43 Lab Scanned Report BLOOD TRANSFUSION Medications Medications Current Medications Metoprolol Tartrate (Lopressor) 50 mg BID PO Last administered on 01/02/17 08: 22; Admin Dose 50 MG; Start 12/31/16 at 09:00 Ibuprofen (Motrin) 600 mg Q6H PRN PO PAIN; Start 12/31/16 at 02:00 Ferrous Sulfate (Ferrous Sulfate (Ec)) 325 mg BID PO Last administered on 08:22; Admin Dose 325 MG; Start 12/31/16 at 09:00 Medroxyprogesterone Acetate (Provera) 10 mg DAILY PO Last administered on 08:22; Admin Dose 10 MG; Start 12/31/16 at 09:00 Hydralazine HCl 10 mg 10 mg Q6H PRN IV ELEVATED BLOOD PRESSURE; Start 12/31/16 at 02:00 Dextrose/Sodium Chloride (D5-1/2ns) 1,000 ml @ 125 mls/hr Q8H IV Last administered on 01/01/17 11:07; Admin Dose 125 MLS/HR; Start 01/01/17 at 10:30 SUKHWINDER SMITH Jan 02, 2017 12:42
--- NOTE | 2017-01-02 13:27 | QN ---
Documentation Comment patient is seen at the bedside No VB No headache No dizziness Vs stable Gen NAD Abd soft NT ND Genitalai No blood at perinium --->DIscharged from Health Officer service --->f/u with her private MD --->patient understands that she and her doctor needs to follow up on pathology report DINORA RAMIREZ M.D. Jan 02, 2017 13:27
[2017-01-02 13:41] LABS: HEMATOCRIT 36.6 % (37.0-47.0); HEMOGLOBIN 12.4 g/dl (12.0-16.0)
--- NOTE | 2017-01-02 16:20 | QN ---
Documentation Comment Kelsey Avendano was hospitalized from 12-30-2016 to 01-02-2017. She needs to stay off work until 01-10-2017 for convalescence and follow up[. May return to work on 01-11-2017. Dr. Stanislaw YOUNG,STANISLAW Araujo MD Jan 02, 2017 16:20
--- NOTE | 2017-01-02 18:20 | DS ---
DATE OF ADMISSION: 12/31/2016 DATE OF DISCHARGE: 01/02/2017 DISCHARGE DIAGNOSES: 1. Metromenorrhagia. 2. Severe anemia. 3. Syncope. 4. Hypertension. HOSPITAL COURSE: This 46-year-old [place] who has been having heavy bleeding for several weeks karli or to admission. She was started on Provera as an outpatient with slowing of her bleeding, but thang virk was unable to get an appointment to a customs director until February and came into the emergency room for excessive vaginal bleeding. Although patient was initially scheduled for discharge with outpat ient followup with customs director. The patient passed out on the way to the bathroom in the emergency room and had to be admitted for packed red blood cell transfusion due to symptomatic anemia. Crescencio peterson received a total of 5 units of packed red blood cells throughout the hospital stay and it brought her hemoglobin and hematocrit up from 8.0/24.1 to 12.4 and 36.6 on the day of discharge. Patient w as also seen by customs director, Dr. Jackelyn Bedoya and underwent a D and C on 01/01/2017 with resolu tion of vaginal bleed the following day. She was taken off of Provera and discharged to home in goo d condition. FOLLOWUP: The patient is scheduled for followup with Dr. Khushi Young within [address] Deutsch within 2 weeks. Dictated By: KHUSHI YOUNG MD DP/NTS Conf#: [id number] DID#: [id number]
== END 2017-01-02 18:25 | disposition home or self-care (01) | DRG 989 ==
LOC: E/R 19:23 → MS1 12-31 00:21
PROVIDERS: ADMIT Internal Medicine; ATTEND Internal Medicine
PROC: 30233N1 Transfusion of Nonautologous Red Blood Cells into Peripheral Vein, Percutaneous Approach (ICD-10-PCS; 2016-12-31)
PROC: 0UDB7ZX Extraction of Endometrium, Via Natural or Artificial Opening, Diagnostic (ICD-10-PCS; principal; 2017-01-01 15:00)
DX: D50.0 Iron deficiency anemia secondary to blood loss (chronic) (principal); R55 Syncope and collapse; I10 Essential (primary) hypertension; N92.1 Excessive and frequent menstruation with irregular cycle; E78.5 Hyperlipidemia, unspecified; Z90.49 Acquired absence of other specified parts of digestive tract
CPT/HCPCS: 36430; 76830; 76856; 80048; 80053; 85014; 85018; 85025; 86850; 86900; 86901; 86920; J3010; J7030; J7040; J7042; J7999; P9016

== ENCOUNTER → 2018-02-05 | Outpatient (CLI) | END | disposition home or self-care (01) ==

== ENCOUNTER → 2018-03-30 | Outpatient (CLI) | END | disposition home or self-care (01) ==

== ENCOUNTER 2018-08-03 19:18 | Emergency (ER) | payer BC ==
[~2018-08-03] VITALS: Ht 162.6 cm; Wt 63.6 kg
[~2018-08-03 19:18] MED LIST changes: -DOCU-144 PO; -IBUP-1542 PO; -MEDR2.5T21 PO; +METO-429 PO; -METO-448 PO
[2018-08-03 19:25] VITALS: Ht 162.6 cm; Wt 63.6 kg
--- NOTE | 2018-08-03 19:39 | ERD ---
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 The patient was at work when she stated she was sitting down eating. She stated she felt the sudden onset of dizziness and felt as though she was going to pass out. A colleague took her blood pressure and indicated that her systolic blood pressure was greater than 200 mmHg. The patient denied any changes in vision. Coworkers stated she became very pale and they called a code green. The patient had no complete transient loss of consciousness. She indicates she took her metoprolol an hour and a half prior to arrival. She st ates she normally takes metoprolol for hypertension at that time before she begins her shift. She denies any recent travel. She states this is not the worst headache of her life. She had no fevers or shaking or chills. She denies a productive or nonproductive cough. She has no chest pain. She states the dizziness resolves when she lies down. ROS All systems reviewed and are negative except as per history of present illness. Medications Home Meds Active Scripts Ferrous Sulfate* (Ferrous Sulfate*) 325 Mg Tabec, 325 MG PO BID, #60 TAB Prov:KALE VALADEZ NP 12/26/16 Reported Medications Metoprolol Tartrate* (Lopressor*) 50 Mg Tab, 50 MG PO BID, #60 TAB 12/30/16 Allergies Allergies: Coded Allergies: No Known Allergy (Verified , 12/30/16) PMhx/Soc History of Surgery: Yes (Cholecystectomy - 12/07/2006) Anesthesia Reaction: No Hx Neurological Disorder: No Hx Respiratory Disorders: No Hx Cardiac Disorders: No Hx Psychiatric Problems: No Hx Miscellaneous Medical Probl: No Hx Alcohol Use: No Hx Substance Use: No Hx Tobacco Use: No Smoking Status: Never smoker Physical Exam Vitals Vital Signs Date Temp Pulse Resp B/P (MAP) Pulse Ox O2 O2 Flow FiO2 Time Delivery Rate 08/03/18 65 20 148/96 96 Room Air 21:58 (113) 08/03/18 97.9 64 18 155/99 100 Room Air 20:14 (117) 08/03/18 Nasal 2 19:43 Cannula 08/03/18 98.2 67 18 174/112 100 19:25 (132) Physical Exam Constitutional:Well-developed. Well-nourished. HEENT:Normocephalic. Atraumatic.Pupils were equal round reactive to light. Moist mucous membranes.No tonsillar exudates. Funduscopy exam shows sharp optic disks and venous pulsations are present Neck: No nuchal rigidity. No lymphadenopathy. No posterior cervical spine tenderness or step-offs. Respiratory: Not using accessory muscles of respiration.Lungs were clear to auscultation bilaterally. No rhonchi. No rales. No wheezing. Cardiovascular: Regular rate regular rhythm.No murmurs. No rubs were appreciated.S1, S2 normal. Distal pulses are palpable 2+ bilaterally. GI: Abdomen was soft. Nontender. Non Distended. No pulsatile abdominal masses or bruits. No rebound. No guarding. Bowel sounds were present and normal. Muscle skeletal: Full range of motion of both the upper and lower extremities bilaterally.Normal muscle tone.No assymetrical calf tenderness or swelling. Skin: No petechia, no purpura. No lesions on the palms or the soles of the feet. No maculopapular rash. NEURO: Patient was alert, awake, orientated x3.No facial droop. Gait observed and normal with no ataxia.Speech had regular rate and rhythm. No focal neurological deficits. Result Diagram: 08/03/18193908/03/181939 Results 24 hrs Laboratory Tests Test 08/03/18 19:40 White Blood Count 5.7 10^3/ul Red Blood Count 4.80 10^6/ul Hemoglobin 14.6 g/dl Hematocrit 44.3 % Mean Corpuscular Volume 92.3 fl Mean Corpuscular Hemoglobin 30.4 pg Mean Corpuscular Hemoglobin Concent 33.0 g/dl Red Cell Distribution Width 13.1 % Platelet Count 274 10^3/UL Mean Platelet Volume 9.7 fl Immature Granulocytes % 0.400 % Neutrophils % 73.6 % Lymphocytes % 19.4 % Monocytes % 4.9 % Eosinophils % 1.2 % Basophils % 0.5 % Nucleated Red Blood Cells % 0.0 /100WBC Immature Granulocytes # 0.020 10^3/ul Neutrophils # 4.2 10^3/ul Lymphocytes # 1.1 10^3/ul Monocytes # 0.3 10^3/ul Eosinophils # 0.1 10^3/ul Basophils # 0.0 10^3/ul Nucleated Red Blood Cells # 0.0 10^3/ul Prothrombin Time 12.2 Sec Prothrombin Time Ratio 1.0 INR International Normalized Ratio 0.89 Activated Partial Thromboplast Time 33.2 Sec Sodium Level 138 mmol/L Potassium Level 4.1 mmol/L Chloride Level 101 mmol/L Carbon Dioxide Level 27 mmol/L Anion Gap 10 Blood Urea Nitrogen 10 mg/dl Creatinine 0.71 mg/dl Est Glomerular Filtrat Rate mL/min > 60 mL/min Glucose Level 133 mg/dl Calcium Level 9.4 mg/dl Total Bilirubin 0.3 mg/dl Direct Bilirubin 0.00 mg/dl Indirect Bilirubin 0.3 mg/dl Aspartate Amino Transf (AST/SGOT) 58 IU/L Alanine Aminotransferase (ALT/SGPT) 24 IU/L Alkaline Phosphatase 167 IU/L Creatine Kinase 49 IU/L Creatine Kinase Index 0.4 Creatinine Kinase MB (Mass) < 0.22 ng/ml Troponin I < 0.012 ng/ml B-Type Natriuretic Peptide 70 PG/ML Total Protein 8.2 g/dl Albumin 4.6 g/dl Globulin 3.60 g/dl Albumin/Globulin Ratio 1.27 Procedures/MDM This patient presented to the emergency department with severely elevated blood pressure. My differential diagnosis included but was not limited to conditions that could end-organ damage such as acute coronary syndrome, acute pulmonary edema, aortic dissection, subarachnoid hemorrhage, intracerebral hemorrhage, cerebral infarction, withdrawal syndromes from beta blockers, or states of catecholamine excess such as pheochromocytoma or drug intoxication. Ancillary lab work was obtained. There was no elevation in the BUN and creatinine to suggest acute renal failure. Electrolytes were normal. Cardiac en zyme was normal and the 12 lead EKG showed no acute ischemic changes or left ventricular hypertrophy. 12 Lead EKG tracing ordered and reviewed by myself showed: Normal sinus rhythm of 63 bpm and no arrhythmia. CA interval normal. QRS duration normal. No ST segment elevation No ST segment depression. No changes consistent with acute ischemia. The patient had a CT scan of her head or and reviewed by myself and the radiologist there is no intracerebral hemorrhage mass-effect or midline shift Obtain a chest radiograph which showed no cardiomegaly no infiltrates. Given that the patient had an absence of cerebral, ocular, cardiac or renal damage the hypertensive urgency was treated with oral agents in the emergency room with improvement of the patient's blood pressure. The patient likely ap peared to be complaint with primary care physician and will follow up with their PCP in the next 24-48 hours. They were instructed to return to the emergency department at anytime if there is any worsening of their condition such as development of chest pain or a headache. They were instructed to resume previous medication regimen or initiate a suitable medication regimen under care of the PCP to enable proper monitoring for drug reactions. The patient was also informed on the adverse side effects and adverse drug interactions of the medications prescribed to them by myself. The patient gave informed consent to the prescription of the new medication. Departure Diagnosis: Primary Impression: Dizziness Additional Impression: Accelerated hypertension Condition: KIRK Davila MD Aug 03, 2018 19:39
[2018-08-03 21:58] VITALS: BP 148/96; PULSE 65; RESP 20
== END 2018-08-03 22:10 | disposition home or self-care (01) ==
LOC: E/R 19:18
DX: R42 Dizziness and giddiness (principal); I10 Essential (primary) hypertension; R40.2252 Coma scale, best verbal response, oriented, at arrival to emergency department; R40.2362 Coma scale, best motor response, obeys commands, at arrival to emergency department; R40.2142 Coma scale, eyes open, spontaneous, at arrival to emergency department; R07.9 Chest pain, unspecified
CPT/HCPCS: 36415; 70450; 71045; 80053; 82550; 82553; 83880; 84484; 85025; 85610; 85730; 93005